=== PATIENT | female | born 1990 | race African-American/Black ===

== ENCOUNTER 2016-09-02 19:46 | Inpatient (IN) | payer BC ==
[~2016-09-02] VITALS: Ht 170.2 cm; Wt 99.0 kg
[2016-09-02 22:37] LABS: BASOPHIL % 0.2 % (0-2); PLATELET COUNT 221 x10^3mcL (130-400)
[2016-09-02 22:40] LABS: RED CELL DISTRIBUTION WIDTH 14.7 % (11.5-14.5)
[2016-09-02 22:48] LABS: CALCIUM 8.8 mg/dL (8.5-10.1); CHLORIDE SERUM 102 mmol/L (98-107); CREATININE SERUM 0.9 mg/dL (0.6-1.0); GFR1 > 60 mL/min; GLUCOSE SERUM 99 mg/dL (74-106); POTASSIUM SERUM 3.1 mmol/L (3.5-5.1); SODIUM SERUM 141 mmol/L (136-145)
[2016-09-02 22:52] LABS: ALBUMIN 3.4 g/dL (3.4-5.0); ALKALINE PHOSPHATASE 53 U/L (46-116); ALT/SGPT 28 U/L (14-59); AMYLASE 41 U/L (25-115); AST/SGOT 31 U/L (15-37); BILIRUBIN TOTAL 0.7 mg/dL (0.20-1.00); LIPASE 99 IU/L (73-393)
[2016-09-03 00:21] LABS: microscopic required? NO
[2016-09-03 00:32] LABS: UA SPECIFIC GRAVITY <=1.005 (1.005-1.035); urine erythrocyte NEGATIVE (NEGATIVE)
[2016-09-03 02:16] LABS: T3 TOTAL 1.19 ng/mL
[2016-09-03 02:19] LABS: CHOLESTEROL/HDL RATIO 2.4
[2016-09-03 02:38] LABS: FREE T4 1.4 ng/dL (0.76-1.46); FREE THYROXINE INDEX 2.7 ug/dL (1.4-4.5)
[2016-09-03 02:44] VITALS: BP 127/77
[2016-09-03 05:25] VITALS: BP 104/70
[2016-09-03 06:51] LABS: BASOPHIL % 0.3 % (0-2); PLATELET COUNT 182 x10^3mcL (130-400)
[2016-09-03 06:53] LABS: RED CELL DISTRIBUTION WIDTH 14.6 % (11.5-14.5)
[2016-09-03 07:16] LABS: CALCIUM 8.4 mg/dL (8.5-10.1); CARBON DIOXIDE 27.7 mmol/L (21-32); CHLORIDE SERUM 107 mmol/L (98-107); CREATININE SERUM 0.7 mg/dL (0.6-1.0); GFR1 > 60 mL/min; GLUCOSE SERUM 102 mg/dL (74-106); MAGNESIUM 1.7 mg/dL (1.8-2.4); PHOSPHOROUS 3.3 mg/dL (2.5-4.9); POTASSIUM SERUM 3.1 mmol/L (3.5-5.1); SODIUM SERUM 143 mmol/L (136-145)
[2016-09-03 08:33] LABS: AMPHETAMINE QUAL UR NONE DETECTED (NEG <=1000)
[2016-09-03 10:21] VITALS: BP 103/69
[2016-09-03 14:00] VITALS: BP 117/76
[2016-09-03 17:57] VITALS: BP 139/93
[2016-09-03 22:13] VITALS: BP 127/86
[2016-09-04 06:29] VITALS: BP 114/76
[2016-09-04 06:41] LABS: CALCIUM 8.5 mg/dL (8.5-10.1); CARBON DIOXIDE 26.2 mmol/L (21-32); CHLORIDE SERUM 108 mmol/L (98-107); CREATININE SERUM 0.8 mg/dL (0.6-1.0); GFR1 > 60 mL/min; GLUCOSE SERUM 107 mg/dL (74-106); SODIUM SERUM 143 mmol/L (136-145)
[2016-09-04 06:55] LABS: ALBUMIN 2.7 g/dL (3.4-5.0)
[2016-09-04 07:15] LABS: BASOPHIL % 0.1 % (0-2); PLATELET COUNT 221 x10^3mcL (130-400); RED CELL DISTRIBUTION WIDTH 14.2 % (11.5-14.5)
[2016-09-04 09:42] VITALS: BP 127/90
[2016-09-04 17:13] VITALS: BP 112/80
[2016-09-04 21:55] VITALS: BP 125/96
[2016-09-05 05:48] VITALS: BP 123/88
[2016-09-05 06:17] LABS: CALCIUM 8.4 mg/dL (8.5-10.1); CARBON DIOXIDE 28.7 mmol/L (21-32); CHLORIDE SERUM 108 mmol/L (98-107); GFR1 > 60 mL/min; GLUCOSE SERUM 96 mg/dL (74-106); POTASSIUM SERUM 3.9 mmol/L (3.5-5.1); SODIUM SERUM 143 mmol/L (136-145)
[2016-09-05 07:01] LABS: BASOPHIL % 0.5 % (0-2); PLATELET COUNT 232 x10^3mcL (130-400); RED CELL DISTRIBUTION WIDTH 14.6 % (11.5-14.5)
[2016-09-05 08:30] VITALS: BP 107/78
[2016-09-05 09:00] VITALS: BP 108/72
[2016-09-05 12:50] VITALS: BP 134/96
[2016-09-05 13:30] VITALS: BP 108/72
[2016-09-05] MEDS ORDERED: TOR10 PO (13:53)
[2016-09-05] MEDS ORDERED: COLACE100 MG PO (13:54)
== END 2016-09-05 16:19 | disposition home or self-care (01) | DRG 341 ==
LOC: ED 19:46 → DU 09-03 00:21 → MU 09-03 00:21 → DU 09-03 02:31 → MU 09-04 06:17
PROVIDERS: Emergency Medicine; Surgery; ADMIT Family Medicine
PROC: 0DTJ4ZZ Resection of Appendix, Percutaneous Endoscopic Approach (ICD-10-PCS; principal; 2016-09-03 11:30)
DX: K35.80 Unspecified acute appendicitis (principal); E43 Unspecified severe protein-calorie malnutrition; E87.6 Hypokalemia; Z68.34 Body mass index [BMI] 34.0-34.9, adult; E87.8 Other disorders of electrolyte and fluid balance, not elsewhere classified; E83.51 Hypocalcemia; E83.42 Hypomagnesemia; D64.9 Anemia, unspecified
CPT/HCPCS: 80307; 83880; 84439; J0694; J1170; J1956; J2250; J2270; J3010; J3475; J3490; J7030; Q0092; Q0162